=== PATIENT | female | born 1985 | race Caucasian/White ===

== ENCOUNTER → 2017-02-11 | Outpatient (CLI) | payer OTHER ==
[~2017-02-11] MED LIST: IOHEXOL 240 MG/ML 50ML VIAL. PO ONE; IOHEXOL 300 MG/ML 100ML VIAL. IV ONE
--- NOTE | 2017-02-11 13:37 | KCIC ---
CT abdomen and pelvis without and with contrast History: Elevated testosterone and DHEA levels, polycystic ovarian syndrome, irregular periods Technique: Pre and postcontrast CT imaging was performed of the abdomen and pelvis. Oral contrast was also given. No oral contrast was given as per request. Multiplanar images are reviewed. Exposure: One or more of the following individualized dose reduction techniques were utilized for this examination: 1. Automated exposure control 2. Adjustment of the mA and/or kV according to patient size 3. Use of iterative reconstruction technique. Contrast: 100 cc Omnipaque 300 Comparison: None Findings: There is no significant abnormality of the visualized lung bases. There is no significant focal abnormality of the liver, spleen, pancreas, adrenal glands. There is diffuse prominent hepatic steatosis, focal fatty sparing near the gallbladder fossa. There is no urolithiasis or hydronephrosis. Both kidneys enhance without hydronephrosis. Gallbladder is present, likely cholelithiasis. There is no significant inflammatory change adjacent to the bowel. There is no evidence of bowel obstruction, free fluid, or free air. Normal appendix is visualized. There is hypodense lesion of the left adnexa up to 3.5 cm AP by 3.5 cm transverse by 3.1 cm CC, internal density measurements of simple fluid at 15 Hounsfield units, not associated with significant enhancement. There are several follicles of the right ovary. Impression: 1. There is left adnexal cyst up to 3.5 cm. There are several follicles of the right ovary. There is no significant free fluid. 2. There is diffuse prominent hepatic steatosis. Electronically signed by: Mateusz Mcconnell MD (02/11/2017 1:34 PM) [id number]
== END | disposition home or self-care (01) ==
LOC: KCIC CT 10:29
PROVIDERS: ATTEND Obstetrics & Gynecology
DX: N83.8 Other noninflammatory disorders of ovary, fallopian tube and broad ligament (principal); E28.2 Polycystic ovarian syndrome; K76.0 Fatty (change of) liver, not elsewhere classified; E28.1 Androgen excess; N92.6 Irregular menstruation, unspecified
CPT/HCPCS: 74178; Q9966; Q9967